=== PATIENT | male | born 1960 | race Two or more races ===

== ENCOUNTER 2022-05-25 23:45 | Inpatient (IN) | payer MEDICARE, OTHER ==
[~2022-05-25] VITALS: Ht 185.4 cm; Wt 90.3 kg
[2022-05-26] MEDS ORDERED: GABA300C PO (00:16)
[2022-05-26] MEDS ORDERED: SERT100T PO (00:16)
[2022-05-26] MEDS ORDERED: MIRT-93 PO (00:16)
[2022-05-26] MEDS ORDERED: OMEG1CAP74 PO (00:16)
[2022-05-26] MEDS ORDERED: FENO48TA6 PO (00:16)
[2022-05-26] MEDS ORDERED: LISI20TA30 PO (00:16)
[2022-05-26] MEDS ORDERED: QUET200T PO (00:16)
[2022-05-26] MEDS ORDERED: HYDR25TA4 PO (00:16)
[2022-05-26] MEDS ORDERED: ATOR80TA PO (00:16)
[2022-05-26] MEDS ORDERED: ASPI81TA31 PO (00:16)
[2022-05-26] MEDS ORDERED: BUPR-319 PO (00:16)
[2022-05-26] MEDS ORDERED: MULT-594 PO (00:16)
--- NOTE | 2022-05-26 00:16 | NUR ---
Patient received via [facility].Accompanied by cable respooler. patient is alert and oriented times 4. pt is calm and cooperative. Pt walked from [facility] to [facility]. gait steady.
[2022-05-26 00:58] LABS: HEMATOCRIT 35.4 % (36.7-47.1); MEAN CORPUSCULAR HEMOGLOBIN 28.4 uug (23.8-33.4); PLATELET COUNT (AUTO) 193 K/uL (152-348)
[2022-05-26 01:11] LABS: ALANINE AMINOTRANSFERASE 29 U/L (16-63); ALKALINE PHOSPHATASE 56 U/L (50-136); ASPARTATE AMINOTRANSFERASE 12 U/L (15-37); BILIRUBIN,DIRECT 0.1 mg/dL (0.0-0.2); BILIRUBIN,TOTAL 0.2 mg/dL (0.2-1.0); CARBON DIOXIDE 30 mmol/L (21-32); CHLORIDE 101 mmol/L (98-107); CREATININE 1.1 mg/dL (0.6-1.3); GLUCOSE 112 mg/dL (74-106); POTASSIUM 3.7 mmol/L (3.5-5.1); TOTAL PROTEIN, SERUM 7.3 g/dL (6.4-8.2); UREA NITROGEN, BLOOD 25 mg/dL (7-18)
[2022-05-26] MEDS ORDERED: diphenhydrAMINE 25 MG CAP PO ONE ×2 (01:19→01:30)
[2022-05-26 01:23] LABS: ACETAMINOPHEN < 2.0 ug/mL (10-30)
[2022-05-26 01:24] LABS: ETHANOL < 3 MG/DL (0-0)
[2022-05-26 03:13] LABS: *BILIRUBIN,URIN NEGATIVE (NEGATIVE); *BLOOD, URINE NEGATIVE (NEGATIVE); *CLARITY,URINE CLEAR (CLEAR); *COLOR,URINE YELLOW (YELLOW); *KETONES,URINE NEGATIVE (NEGATIVE); LEUKOCYTE ESTERASE ,URINE NEGATIVE (NEGATIVE); NITRITE, URINE NEGATIVE (NEGATIVE); UGLUCOSE NEGATIVE (NEGATIVE)
--- NOTE | 2022-05-26 03:17 | NUR ---
benadryl administered as ordered. patient asleep in bed.
--- NOTE | 2022-05-26 03:17 | NUR ---
urine obtained and sent to lab.
[2022-05-26 03:23] LABS: *AMPHETAMINE, URINE POSITIVE (NEGATIVE); *CANNABINOID, URINE POSITIVE (NEGATIVE); *COCCAINE, URINE NEGATIVE (NEGATIVE); *OPIATE, URINE POSITIVE (NEGATIVE); *PHENCYCLIDINE SCREEN,URINE NEGATIVE (NEGATIVE)
--- NOTE | 2022-05-26 03:40 | NUR ---
Pt medically cleared by Dr. Chavez
[2022-05-26] MEDS ORDERED: MAGNESIUM HYDROXIDE 30 ML LIQUID UDC PO PRN (04:45)
[2022-05-26] MEDS ORDERED: ACETAMINOPHEN 325 MG TABLET PO PRN (04:45)
[2022-05-26] MEDS ORDERED: MAG HYDROX/AL HYDROX/SIMETH 30 ML LIQUID UDC PO PRN (04:45)
[2022-05-26] MEDS ORDERED: TEMAZEPAM 7.5 MG CAPSULE PO PRN (04:45)
--- NOTE | 2022-05-26 04:45 | NUR ---
Report given to Taylor GAMBLE M[facility].
[2022-05-26] MEDS ORDERED: LORAZEPAM 1 MG TABLET PO PRN (05:00)
--- NOTE | 2022-05-26 05:16 | NUR ---
Ativan administered as ordered. no adverse reaction noted. Safety precaution maintained.
[2022-05-26 05:20] VITALS: BP 116/78
--- NOTE | 2022-05-26 05:30 | NUR ---
GPS ADMISSION NOTE : Patient is a 62 year old male brought in from [facility] via ambulance on a 5150 for danger to self. Per hold , the patient verbalized to his sister that he wanted to kill himself with a Fentanyl overdose. Upon face to face evaluation, the patient appeared anxious with poor eye contact. Patient said that he " was smoking Meth for weeks straight. I was seeing things and said stupid things. " The patient denied SI and was will to make a contract for safety with this program writer. VS stable, A Patients Rights Handbook and Advisement were provided. Safety Stratiges in place. A PRN medication for anxiety was provided per order.
[2022-05-26] MEDS: LORAZEPAM 0.5 MG TABLET PO PRN ×3 (06:17→22:14)
[2022-05-26 07:50] VITALS: BP 103/48
[2022-05-26] MEDS ORDERED: GABAPENTIN 300 MG CAPSULE PO SCH (09:00)
[2022-05-26] MEDS: LISINOPRIL 20 MG TABLET PO SCH (09:00)
[2022-05-26] MEDS: HYDROCHLOROTHIAZIDE 25 MG TABLET PO SCH (09:00)
[2022-05-26] MEDS: GABAPENTIN 300 MG CAPSULE PO SCH ×2 (09:18→17:04)
[2022-05-26] MEDS: MULTIVITAMINS,THERAPEUTIC TABLET PO SCH (09:18)
[2022-05-26] MEDS: OMEGA-3 FATTY ACIDS/FISH OIL CAPSULE PO SCH (09:18)
[2022-05-26] MEDS: ASPIRIN 81 MG TAB.CHEW PO SCH (09:18)
[2022-05-26] MEDS: NICOTINE 21 MG/24HR PATCH TD SCH (09:19)
[2022-05-26 16:01] VITALS: BP 138/85
[2022-05-26] MEDS: QUETIAPINE FUMARATE 25 MG TABLET PO SCH ×2 (17:04→22:14)
[2022-05-26 20:04] VITALS: BP 130/64
--- NOTE | 2022-05-26 20:30 | NUR ---
Received patient in his bed sleeping but easily arousable. Pt noted A/O x 3 he is able to verbalized his feelings and able to make his needs known. He appears depressed, low mood blunted affect, He stated, "I still thinking about dying but I don't want to hurt myself. i will not hurt myself". Patient is expressing passive SI with no plan or intent to commit suicidal. he is able to verbally CFS. Patient was given PO fluids and snacks. he is reassured for his safety. safety and fall precautions are in place. V/S stable. will continue to monitor.
[2022-05-26] MEDS: FENOFIBRATE NANOCRYSTALLIZED 48 MG TABLET PO SCH (21:00)
[2022-05-26] MEDS ORDERED: FENOFIBRATE NANOCRYSTALLIZED 48 MG TABLET PO SCH (21:00)
[2022-05-26] MEDS: ATORVASTATIN 40 MG TABLET PO SCH (22:14)
--- NOTE | 2022-05-26 22:15 | NUR ---
patient was given Ativan 0.5mg PO PRN for mild anxiety. will continue to monitor.
--- NOTE | 2022-05-26 22:35 | NUR ---
patient stated, "i can't sleep" he was given temazepam 7.5mg PO PRN. will continue to monitor.
--- NOTE | 2022-05-27 00:30 | NUR ---
Patient noted sleeping in his room, will continue to monitor.
[2022-05-27] MEDS: LORAZEPAM 0.5 MG TABLET PO PRN ×2 (03:07→21:01)
--- NOTE | 2022-05-27 03:12 | NUR ---
Patient noted awake. He stated, I can't sleep. I am going to the day room. while in the day room patient was observed doing jumping jacks. He was given Ativan 0.5mg PO prn. then he added, "I don't thing this dose will help me". patient was reassured and redirect. will continue to monitor.
--- NOTE | 2022-05-27 06:41 | NUR ---
Patient slept for approx 6 hrs through the night. he is observed doing some jumping jacks. he stated, "It help me to calm down". Will endorse accordingly.
[2022-05-27 07:03] LABS: HEMATOCRIT 37.7 % (36.7-47.1); MEAN CORPUSCULAR HEMOGLOBIN 28.7 uug (23.8-33.4); MEAN CORPUSCULAR VOLUME 85.1 fL (73.0-96.2); PLATELET COUNT (AUTO) 202 K/uL (152-348)
[2022-05-27 07:33] LABS: CREATININE 1.2 mg/dL (0.6-1.3); POTASSIUM 4.6 mmol/L (3.5-5.1)
[2022-05-27 08:04] VITALS: BP 142/77
[2022-05-27] MEDS: MULTIVITAMINS,THERAPEUTIC TABLET PO SCH (09:02)
[2022-05-27] MEDS: GABAPENTIN 300 MG CAPSULE PO SCH ×2 (09:02→17:07)
[2022-05-27] MEDS: OMEGA-3 FATTY ACIDS/FISH OIL CAPSULE PO SCH (09:02)
[2022-05-27] MEDS: ASPIRIN 81 MG TAB.CHEW PO SCH (09:02)
[2022-05-27] MEDS: QUETIAPINE FUMARATE 25 MG TABLET PO SCH ×3 (09:02→21:01)
[2022-05-27] MEDS: NICOTINE 21 MG/24HR PATCH TD SCH (09:03)
[2022-05-27] MEDS: LISINOPRIL 20 MG TABLET PO SCH (09:03)
[2022-05-27] MEDS: HYDROCHLOROTHIAZIDE 25 MG TABLET PO SCH (09:04)
[2022-05-27] MEDS: DULOXETINE 30 MG CAPSULE.DR PO SCH (09:07)
[2022-05-27] MEDS ORDERED: TEMAZEPAM 7.5 MG CAPSULE PO PRN (10:30)
--- NOTE | 2022-05-27 10:49 | NUR ---
Firearms Report: Nutritionist completed and submitted a [employer] firearms report for 5150 danger to self certifications. A copy of report has been placed in patient chart.
--- NOTE | 2022-05-27 14:20 | NUR ---
Received patient in his room alert and oriented x4, ambulated c/o unable to sleep for 2 days. encouraged to attend in group activity , patient denies any SI,compliant with all schedule medication ,will continue to monitoring.
[2022-05-27 16:08] VITALS: BP 118/57
[2022-05-27 20:53] VITALS: BP 146/80
[2022-05-27] MEDS: FENOFIBRATE NANOCRYSTALLIZED 48 MG TABLET PO SCH (21:01)
[2022-05-27] MEDS: ATORVASTATIN 40 MG TABLET PO SCH (21:01)
[2022-05-27] MEDS: TEMAZEPAM 15 MG CAPSULE PO PRN (22:11)
--- NOTE | 2022-05-28 01:06 | NUR ---
Received patient in his bed, he is noted awake A/O x 3 he He is less anxious and appears less depressed, but he continue withdrawn and isolative. He stated, he denied SI/HI/VH/AH/ he is able to verbally CFS. "I am feeling better, i don't want to ". Ativan 0.5mg PO prn was given per patient's request. he stated, "I feel i need to take the Ativan now so i can sleep better" Ot was told that he also have Temazepam 15mg PO PRN for insomnia if he had trouble falling asleep. he understood. Patient was given PO fluids and snacks. he is reassured for his safety. safety and fall precautions are in place. V/S stable. will continue to monitor.
[2022-05-28 07:30] VITALS: BP 139/81
[2022-05-28] MEDS: OMEGA-3 FATTY ACIDS/FISH OIL CAPSULE PO SCH (08:36)
[2022-05-28] MEDS: DULOXETINE 30 MG CAPSULE.DR PO SCH (08:37)
[2022-05-28] MEDS: MULTIVITAMINS,THERAPEUTIC TABLET PO SCH (08:37)
[2022-05-28] MEDS: GABAPENTIN 300 MG CAPSULE PO SCH ×2 (08:37→17:36)
[2022-05-28] MEDS: ASPIRIN 81 MG TAB.CHEW PO SCH (08:37)
[2022-05-28] MEDS: LISINOPRIL 20 MG TABLET PO SCH (08:37)
[2022-05-28] MEDS: QUETIAPINE FUMARATE 25 MG TABLET PO SCH ×3 (08:37→17:36)
[2022-05-28] MEDS: NICOTINE 21 MG/24HR PATCH TD SCH (08:38)
[2022-05-28] MEDS: HYDROCHLOROTHIAZIDE 25 MG TABLET PO SCH (08:38)
--- NOTE | 2022-05-28 10:43 | NUR ---
SW Family Contact: SW called and spoke with pt's sister, Brenda ([phone]) to discuss discharge plan; however, pt's sister was entering a meeting and will call back later to discuss. Awaiting call back.
--- NOTE | 2022-05-28 10:43 | NUR ---
MYRANDA Initial Discharge Note: Pt currently resides alone at [address] [place] [address] ([phone]). Pt expressed he would like to return home when he is ready for discharge. MYRANDA called and spoke with pt's sister to discuss discharge plan; however, pt's sister was entering a meeting and will call back later to discuss. MYRANDA will continue to work with pt, family, and MD to ensure a safe and proper discharge plan.
--- NOTE | 2022-05-28 11:03 | NUR ---
Brief Substance Abuse Intervention: Patient was provided with a brief substance abuse intervention and referred to the following substance abuse programs: [facility] ([phone]); [facility] ([phone]); [facility] ([phone]).
--- NOTE | 2022-05-28 15:37 | NUR ---
Received patient awake in the hallway. A/O X 3 to person, place, environment. Patient is hyperverbal, intrusive, cooperative with nursing care, compliant with medications. Patient is irritable and anxious at times. Requires minimal assistance with ADL. Patient is encourage to verbalize feelings. Fall and safety precautions implemented.
[2022-05-28 15:48] VITALS: BP 145/91
[2022-05-28 19:54] VITALS: BP 130/91
[2022-05-28] MEDS: FENOFIBRATE NANOCRYSTALLIZED 48 MG TABLET PO SCH (20:05)
[2022-05-28] MEDS: ATORVASTATIN 40 MG TABLET PO SCH (20:05)
--- NOTE | 2022-05-28 20:54 | NUR ---
GPS: Anxious,guarded and remains depressed. Denies wanting to hurt self. Re-assured prn. Safety checks q15 minutes as scheduled. Safety emphasized. Meds.as ordered. Will continue to monitor.
[2022-05-28] MEDS ORDERED: QUETIAPINE FUMARATE 100 MG TABLET PO SCH (21:00)
[2022-05-28] MEDS: TEMAZEPAM 15 MG CAPSULE PO PRN (21:59)
--- NOTE | 2022-05-29 06:29 | NUR ---
GPS: Pt.slept 4.45 last night. Anxious,feels frustrated about his insomnia. Denies SI. Negative for AH/VH when asked. Re-assured prn. Safe environment provided. Will continue to monitor.
[2022-05-29 07:30] VITALS: BP 151/96
[2022-05-29] MEDS: NICOTINE 21 MG/24HR PATCH TD SCH (08:39)
[2022-05-29] MEDS: HYDROCHLOROTHIAZIDE 25 MG TABLET PO SCH (08:40)
[2022-05-29] MEDS: LISINOPRIL 20 MG TABLET PO SCH (08:41)
[2022-05-29] MEDS: OMEGA-3 FATTY ACIDS/FISH OIL CAPSULE PO SCH (08:41)
[2022-05-29] MEDS: MULTIVITAMINS,THERAPEUTIC TABLET PO SCH (08:41)
[2022-05-29] MEDS: QUETIAPINE FUMARATE 25 MG TABLET PO SCH (08:41)
[2022-05-29] MEDS: GABAPENTIN 300 MG CAPSULE PO SCH ×2 (08:41→16:50)
[2022-05-29] MEDS: ASPIRIN 81 MG TAB.CHEW PO SCH (08:42)
--- NOTE | 2022-05-29 14:28 | NUR ---
MYRANDA Family Contact: SW called pt's sister, Brenda ([phone]) and left a voicemail for a call back regarding pt's discharge plan and pt's dog's care at home.
--- NOTE | 2022-05-29 14:31 | NUR ---
Received patient sleeping in his room. Patient is A/O X 3 to person, place, environment. Patient is cooperative, calm, withdrawn, fixated on food and snacks. Requires minimal assistance with ADL. Patient is compliant with medications. Emotional support provided. Fall and safety precautions implemented.
[2022-05-29 16:04] VITALS: BP 139/84
[2022-05-29 19:59] VITALS: BP 144/82
[2022-05-29] MEDS: LORAZEPAM 0.5 MG TABLET PO PRN (20:04)
[2022-05-29] MEDS: ATORVASTATIN 40 MG TABLET PO SCH (20:05)
[2022-05-29] MEDS: FENOFIBRATE NANOCRYSTALLIZED 48 MG TABLET PO SCH (20:05)
[2022-05-29] MEDS ORDERED: QUETIAPINE FUMARATE 100 MG TABLET PO SCH (21:00)
[2022-05-29] MEDS ORDERED: QUETIAPINE FUMARATE 200 MG TABLET PO SCH (21:00)
[2022-05-29] MEDS: TEMAZEPAM 15 MG CAPSULE PO PRN (21:05)
[2022-05-30] MEDS: LORAZEPAM 0.5 MG TABLET PO PRN (02:11)
--- NOTE | 2022-05-30 02:27 | NUR ---
Received patient standing by the nurses station requesting for sleeping pills. Patient appeared anxious, restless, and fixated on receiving medication. This communications writer educated patient about the timing when PRNs were due. After receiving the medication, the patient did sleep for a few hours, but was up again in the middle of the night. Patient was anxious and restless. Eventually, patient went back to bed to, "Give it another try". Safety strategies remain in place. The patient made a verbal contract for safety with this communications writer.
[2022-05-30 07:38] VITALS: BP 123/69
[2022-05-30] MEDS ORDERED: AMLODIPINE 2.5 MG TABLET PO SCH (09:00)
[2022-05-30] MEDS: ASPIRIN 81 MG TAB.CHEW PO SCH (09:03)
[2022-05-30] MEDS: NICOTINE 21 MG/24HR PATCH TD SCH (09:03)
[2022-05-30] MEDS: OMEGA-3 FATTY ACIDS/FISH OIL CAPSULE PO SCH (09:03)
[2022-05-30] MEDS: MULTIVITAMINS,THERAPEUTIC TABLET PO SCH (09:03)
[2022-05-30] MEDS: GABAPENTIN 300 MG CAPSULE PO SCH (09:03)
[2022-05-30] MEDS: LISINOPRIL 20 MG TABLET PO SCH (09:04)
[2022-05-30 09:06] VITALS: BP 123/69
[2022-05-30] MEDS: HYDROCHLOROTHIAZIDE 25 MG TABLET PO SCH (09:06)
--- NOTE | 2022-05-30 10:30 | NUR ---
PT WAS PRESENT AT [facility]. PT WAS RELEASED BY THE COURT
--- NOTE | 2022-05-30 11:19 | NUR ---
MYRANDA PC Hearing: Patient had 5250 probable cause hearing today and it was not upheld for a danger to himself.
--- NOTE | 2022-05-30 12:02 | NUR ---
MYRANDA Discharge Note: Pt will be discharged home located at [address] [place] [address], [address] [place] [address] ([phone]) via bus pass transportation at 1PM. MYRANDA called pts sister, Brenda ([phone]) and left a voicemail regarding pts discharge details. MYRANDA informed Brenda that pt will return home today due to pts release by the court during his court hearing. Pt is aware and agreeable with the discharge plan. Pt is alert and oriented x4, is unable to plan for self-care at this time. However, pt is willing to return home and follow-up with is psychiatrist and medical historian. Pt denies any suicidal or homicidal ideation. Pt will follow-up at [facility] located at [address] [facility] ([phone]) with his outpatient Psychiatrist, Dr. Elodia Leon ([phone]) and Salvationist, Dr. Valery Levy. Pt presents with calm mood and congruent affect. PHARMACY: [facility] [id number] [facility] ([phone]).
--- NOTE | 2022-05-30 13:03 | NUR ---
PT'S PHARMACY, [facility] ([phone]). SPOKE WITH MARLINE, PRESCRIPTION WAS CALLED IN.
--- NOTE | 2022-05-30 14:09 | NUR ---
Pt had been released by the court earlier. pt is being discharged home. Pt is jaun for safety. 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 pt is A/O x4. Vs are stable, no distress. pt has a charged phone and knows how to navigate the community including taking public transportation. pt was given discharge instructions including prescription medications that needed to be picked up from the pharmacy.
[2022-05-30] MEDS ORDERED: ATORVASTATIN 10 MG TABLET PO SCH (21:00)
[2022-05-30] MEDS ORDERED: QUETIAPINE FUMARATE 200 MG TABLET PO SCH (21:00)
== END 2022-05-30 14:13 | disposition home or self-care (01) | DRG 885 ==
LOC: ER 23:45 → GPS 05-26
PROVIDERS: ADMIT Psychiatry & Neurology Psychosomatic Medicine; ATTEND Nurse Practitioner Acute Care
DX: F31.9 Bipolar disorder, unspecified (principal); G92.9 Unspecified toxic encephalopathy; F15.10 Other stimulant abuse, uncomplicated; D64.9 Anemia, unspecified; I10 Essential (primary) hypertension; F29 Unspecified psychosis not due to a substance or known physiological condition; F17.210 Nicotine dependence, cigarettes, uncomplicated; F19.10 Other psychoactive substance abuse, uncomplicated; E66.9 Obesity, unspecified; Z68.26 Body mass index [BMI] 26.0-26.9, adult; R73.03 Prediabetes; Z20.822 Contact with and (suspected) exposure to COVID-19
CPT/HCPCS: 36415; 85025; 93005; A4663; G0480; Q0163